=== PATIENT | female | born 1960 | race Caucasian/White ===

== ENCOUNTER 2021-02-04 08:00 | Outpatient (CLI) | payer BC ==
--- NOTE | 2021-02-04 17:06 | XRAY Report ---
PROCEDURE: Toe(s) LT INDICATIONS: SPRAIN OF LEFT LESSER TOE TECHNIQUE: 3 views of the left toe(s) acquired. COMPARISON: None. FINDINGS: Fracture of the proximal phalanx of the fifth toe. There is dorsal angulation of the distal fracture fragment. No definite intra-articular extension. Associated soft tissue swelling. 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 IMPRESSION: Displaced fracture involving the proximal phalanx of the fifth toe. Reviewed by: Mayank Dale MD on 02/04/2021 5:05 PM PST Approved by: Mayank Dale MD on 02/04/2021 5:05 PM PST Station ID: [id number]
== END 2021-02-04 23:59 | disposition home or self-care (01) ==
LOC: DI.S 08:00
PROVIDERS: ATTEND Emergency Medicine
DX: S92.512A Displaced fracture of proximal phalanx of left lesser toe(s), initial encounter for closed fracture (principal)
CPT/HCPCS: 73660